=== PATIENT | female | born 1980 | race Caucasian/White ===

== ENCOUNTER 2017-03-24 11:49 | Emergency (ER) | payer BC ==
--- NOTE | 2017-03-24 12:44 | PD ---
HPI Chief Complaint ?LOF Date Seen: Mar 24, 2017 Time Seen: 12:37 Travel History International Travel<30 Days: No Contact w/Intl Traveler<30Days: No Known Affected Area: No History of Present Illness HPI Pt is a 37y/o @ 37.5wks. She has PNC with Dr. Marshall. She presents today for evaluation of possible LOF. She states that she "waited too long" with G1 ROM and baby had to stay in the NICU. She reports, however, that she thought she broke her water on Friday and she had to change her pants twice. On Friday it was less but today more. No VB. +FM. Occasional ctx, Weeks Gestation: 37 Para: 1 : 2 History Past Medical History Medical History: Denies Significant Hx Obstetric History Obstetric History 1. @ term 2. current Past Surgical History Narrative Surgical breast augmentation Family History Family History: Negative Social History Alcohol Use: No Tobacco Use: No Substance Abuse: No Allergies-Medications (Allergen,Severity, Reaction): Coded Allergies: No Known Allergies (Verified Allergy, Severe, 11/29/04) Review of Systems Except as stated in HPI: all other systems reviewed are Neg Physical Exam Narrative General: well developed, well nourished, no acute distress HEENT: normocephalic atraumatic, extraocular movements intact, neck supple Abdomen: soft, gravid, nontender, nondistended Uterus: fundus term Extremities: full range of motion Skin: normal coloration, no rashes Neurologic: cranial nerves 2-12 grossly intact, normal muscle tone, normal gait Psychiatric: normal mood and affect, appropriate FHTs: 135, +accels, no decels, moderate variability, reactive [place]: quiet Cvx: deferred Data Data Vital Signs Reviewed: Yes Orders Orders Vital Signs (Adult) .ON ADMISSION (03/24/17 12:34) ^ Labor Status (03/24/17 12:34) ^ Non Stress Test (03/24/17 12:34) Pamg-1 Test .ONCE (03/24/17 12:34) MDM Plan 37y/o @ 37.5wks with ?LOF. -- amnisure neg (pt counseled not to wait 2.5days to come for evaluation if suspected ROM) -- NST cat 1 -- toco quiet Dispo: stable for d/c home; has PNC appt on Friday Diagnosis Diagnosis: Primary Impression: 37 weeks gestation of Additional Impressions: No leakage of amniotic fluid into vagina AMA (advanced maternal age) multigravida 35+ Nancy Lugo MD Mar 24, 2017 12:44
== END 2017-03-24 12:50 | disposition home or self-care (01) ==
LOC: HOBED 11:49
DX: Z03.71 Encounter for suspected problem with amniotic cavity and membrane ruled out (principal); O09.523 Supervision of elderly multigravida, third trimester; Z3A.37 37 weeks gestation of pregnancy
CPT/HCPCS: 59025; 84112

== ENCOUNTER 2017-03-27 14:28 | Inpatient (IN) | payer BC ==
[2017-03-27] VITALS (100 sets, daily range): BP systolic 118–157; BP diastolic 75–96; PULSE 69–132; RESP 18; TEMP 98–99.1; O2SAT 95–99
[~2017-03-27] VITALS: Ht 162.6 cm; Wt 83.0 kg
[2017-03-27] MEDS ORDERED: LACTATED RINGER'S 1000 ML INJ 1,000 ML IV PRN (15:16)
[2017-03-27] MEDS ORDERED: LACTATED RINGER'S 1000 ML INJ 1,000 ML IV SCH (15:16)
--- NOTE | 2017-03-27 15:23 | HHI.HP ---
HPI Chief Complaint Sallie cortez Date Seen: Mar 27, 2017 Time Seen: 15:15 Travel History International Travel<30 Days: No Contact w/Intl Traveler<30Days: No Known Affected Area: No History of Present Illness HPI Patient is 37-year-old white female at [address] Marshall for care at the [facility] and presents with spontaneous ruptured membranes. She is having contractions but is relatively comfortable. No bleeding noted. heart rate tracing is reactive and she is zia every 5-6 minutes mildly. The amnio sure is positive and the patient describes continued leakage per vagina Weeks Gestation: 38 Para: 1 : 2 History Obstetric History Obstetric History One vaginal delivery Past Surgical History Narrative Surgical Breast augmentation Social History Alcohol Use: No Tobacco Use: No Substance Abuse: No Allergies-Medications (Allergen,Severity, Reaction): Coded Allergies: No Known Allergies (Verified Allergy, Severe, 11/29/04) Review of Systems General / Constitutional: No: Fever, Weight Gain, Chills, Other Eyes: No: Diploplia, Blurred Vision, Visual changes, Pain, Photophobia HENT: No: Headaches, Vertigo, Lightheadedness Cardiovascular: No: Irregular Rhythm, Chest Pain or Discomfort, Palpitations, Tachycardia, Syncope, Varicosities, Edema, Cyanosis Respiratory: No: Cough, Short of Breath, Other Gastrointestinal: No: Nausea, Vomiting, Diarrhea Genitourinary: No: Decreased Urinary Output, Oliguria Musculoskeletal: No: Limited ROM, Weakness, Cramping, Edema, Pain Skin: No Rash, No Itching, No Dryness, No Lumps, No Change in Pigmentation, No Change in Nails, No Alopecia, No Lesions Neurologic: No: Weakness, Dizziness, Syncope, Focal Abnormalities, Coordination Problem, Headache, Slurred Speech, Seizures Psychiatric: No: Depression, Suicidal Ideations, Homicidal Ideation Endocrine: No: Heat Intolerance, Cold Intolerance, Polydipsia, Polyuria, Other Physical Exam Narrative GENERAL: Well-nourished, well-developed patient. SKIN: Warm and dry. HEAD: Normocephalic and atraumatic. EYES: No scleral icterus. No injection or drainage. ENT: No nasal drainage noted. Mucous membranes pink. Airway patent. NECK: Supple, trachea midline. No JVD. CARDIOVASCULAR: Regular rate and rhythm without murmurs, gallops, or rubs. RESPIRATORY: Breath sounds equal bilaterally. No accessory muscle use. BREASTS: Bilateral exam showed no masses , no retractions, no nipple discharge. ABDOMEN/GI: Abdomen soft, non-tender, bowel sounds present, no rebound, no guarding Gravid to [-38] weeks size Fundal Height: [38-] GENITOURINARY: External Genitalia: intact and normal in appearance BUS glands: [-] Cervix: [-] Dilatation: [3-] Effacement: [-70] Station: [-2] Presentation: [-] Membranes: ruptured] positive amnio sure Uterine Contractions: [-irreg] FHT's: Category: [1-] Baseline: [133-] Reactive: [yes-] Variability: [mod-] Decels: [-none] EXTREMITIES: No cyanosis or edema. BACK: Nontender without obvious deformity. No CVA tenderness. NEUROLOGICAL: Awake and alert. Motor and sensory grossly within normal limits. Five out of 5 muscle strength in all muscle groups. Normal speech. Caprini VTE Risk Assessment Caprini VTE Risk Assessment: No/Low Risk (score <= 1) Caprini Risk Assessment Model Point Value = 1 Point Value = 2 Point Value = 3 Point Value = 5 Age 41-60 Minor surgery BMI > 25 kg/m2 Swollen legs Varicose veins or History of unexplained or recurrent spontaneous Oral contraceptives or hormone replacement Sepsis (< 1 month) Serious lung disease, including pneumonia (< 1 month) Abnormal pulmonary function Acute myocardial infarction Congestive heart failure (< 1 month) History of inflammatory bowel disease Medical patient at bed rest Age 61-74 Arthroscopic surgery Major open surgery (> 45 min) Laparoscopic surgery (> 45 min) Malignancy Confined to bed (> 72 hours) Immobilizing plaster cast Central venous access Age >= 75 History of VTE Family history of VTE Factor V Leiden Prothrombin [id number] Lupus anticoagulant Anticardiolipin antibodies Elevated serum homocysteine Heparin-induced thrombocytopenia Other congenital or acquired thrombophilia Stroke (< 1 month) Elective arthroplasty Hip, pelvis, or leg fracture Acute spinal cord injury (< 1 month) Prophylaxis Regimen Total Risk Factor Score Risk Level Prophylaxis Regimen 0-1 Low Early ambulation 2 Moderate Order ONE of the following: *Sequential Compression Device (SCD) *Heparin 5000 units SQ BID 3-4 Higher Order ONE of the following medications: *Heparin 5000 units SQ TID *Enoxaparin/Lovenox 40 mg SQ daily (WT < 150 kg, CrCl > 30 mL/min) *Enoxaparin/Lovenox 30 mg SQ daily (WT < 150 kg, CrCl > 10-29 mL/min) *Enoxaparin/Lovenox 30 mg SQ BID (WT < 150 kg, CrCl > 30 mL/min) AND/OR *Sequential Compression Device (SCD) 5 or more Highest Order ONE of the following medications: *Heparin 5000 units SQ TID (Preferred with Epidurals) *Enoxaparin/Lovenox 40 mg SQ daily (WT < 150 kg, CrCl > 30 mL/min) *Enoxaparin/Lovenox 30 mg SQ daily (WT < 150 kg, CrCl > 10-29 mL/min) *Enoxaparin/Lovenox 30 mg SQ BID (WT < 150 kg, CrCl > 30 mL/min) AND *Sequential Compression Device (SCD) Data Data Orders Orders Admit To Inpatient (03/27/17 ) Vital Signs (Adult) .Per protocol (03/27/17 15:16) Heart (03/27/17 15:16) Amnioinfusion (03/27/17 15:16) Urinary Catheter Management .ONCE (03/27/17 15:16) Diet Liquid (03/27/17 Dinner) Lactated Ringer's 1000 Ml Inj (Lr 1000 M (03/27/17 15:16) Lactated Ringer's 1000 Ml Inj (Lr 1000 M (03/27/17 15:16) Sodium Chlorid 0.9% 500 Ml Inj (Ns 500 M (03/27/17 15:30) Sodium Chlor 0.9% 1000 Ml Inj (Ns 1000 M (03/27/17 15:36) Lidocaine 1% Inj (50 Ml) (Xylocaine 1% I (03/27/17 15:30) Citric Acid-Sodium Citrate Liq (Bicitra (03/27/17 15:30) Fentanyl Inj (Fentanyl Inj) (03/27/17 15:30) Fentanyl Inj (Fentanyl Inj) (03/27/17 15:30) Complete Blood Count With Diff (03/27/17 15:16) Hold Clot (03/27/17 15:16) Abo/Rh Blood Type (03/27/17 15:16) Urinalysis - C+S If Indicated (03/27/17 15:16) Drug Screen, Random Urine (03/27/17 15:16) Resp Oxygen Non Rebreathe Mask (03/27/17 ) ^ Epidural / Intrathecal Infus (03/27/17 15:16) Oxytocin 30 Units-500ml Premix (Pitocin (03/27/17 15:30) Lidocaine 1% Inj (50 Ml) (Xylocaine 1% I (03/27/17 15:30) Light Mineral Oil (Muri-Lube Oil) (03/27/17 15:30) Group B Strep: Negative Labs Amnio sure positive Assessment/Plan Assessment and Plan Patient is 37-year-old white female at 38 weeks presents with spontaneous ruptured membranes at term. No bleeding. The heart rate tracing is reactive and she is zia every 5-6 minutes mildly. Amnio sure is positive Plan--admit for SROM at term, augment labor appropriately and anticipate vaginal delivery Jose Perez II, MD Mar 27, 2017 15:23
[2017-03-27] MEDS ORDERED: CITRIC ACID-SODIUM CITRATE LIQ 30 ML UDC PO SCH (15:30)
[2017-03-27] MEDS ORDERED: SODIUM CHLORID 0.9% 500 ML INJ 500 ML IV PRN (15:30)
[2017-03-27] MEDS ORDERED: LIDOCAINE HCL 1% 50 ML VIAL INFIL PRN (15:30)
[2017-03-27] MEDS ORDERED: OXYTOCIN 30 UNITS-500ML PREMIX 500 ML IV ONE (15:30)
[2017-03-27] MEDS ORDERED: LIDOCAINE HCL 1% 50 ML VIAL I-DERMAL PRN (15:30)
[2017-03-27] MEDS ORDERED: MINERAL OIL 10 ML VIAL TOPICAL PRN (15:30)
[2017-03-27] MEDS ORDERED: SODIUM CHLOR 0.9% 1000 ML INJ 1,000 ML IV PRN (15:36)
[2017-03-27] MEDS ORDERED: MEASLES, MUMPS, RUBELLA VACCINE 0.5 ML VIAL SQ ONE (16:00)
[2017-03-27] MEDS ORDERED: DIPHTH/TETANUS/ACEL PERTUSSIS (BOOSTER) 0.5 ML VIAL/PFS IM ONE (16:00)
[2017-03-27 16:49] LABS: BASOPHIL % 0.6 % (0.0-2.0); EOSINOPHIL # 0.1 TH/MM3 (0-0.4); EOSINOPHIL % 0.8 % (0.0-4.0); HEMATOCRIT 34.8 % (35.0-46.0); HEMO FLAGS DIFF FINAL; LYMPH % 18.2 % (9.0-44.0); LYMPHOCYTE # 1.5 TH/MM3 (1.0-4.8); MEAN CELL VOLUME 85.6 FL (80.0-100.0); MEAN CORPUSCULAR HEMOGLOBIN 29.4 PG (27.0-34.0); MEAN CORPUSCULAR HGB CONC 34.4 % (32.0-36.0); MONO % 6.4 % (0.0-8.0); PLATELET COUNT 210 TH/MM3 (150-450); RED BLOOD COUNT 4.07 MIL/MM3 (4.00-5.30); RED CELL DISTRIBUTION WIDTH 12.9 % (11.6-17.2); WHITE BLOOD COUNT 8.1 TH/MM3 (4.0-11.0)
[2017-03-27] MEDS ORDERED: OXYTOCIN 30 UNITS/NS 500ML PREMIX IV SCH (17:00)
[2017-03-27 17:59] LABS: BLOOD, URINE NEG (NEG); COMMENT (UR) CULT NOT INDICATED; CULTURE IF INDICATED CULT NOT INDICATED; GLUCOSE,URINE NEG (NEG); KETONE, URINE NEG (NEG); MUCUS URINE MOD /lpf (OCC); NITRITE,URINE NEG (NEG); SQUAMOUS EPITHELIAL CELL URINE 1 /hpf (0-5); URINE COLOR YELLOW (YELLW/STRAW)
[2017-03-27] MEDS ORDERED: fentaNYL 2MCG-BUPIV 0.125% INJ 100 ML ONE (19:24)
[2017-03-27] MEDS ORDERED: ePHEDrine/NS 25 MG/5 ML SYRINGE ONE (19:25)
[2017-03-27] MEDS ORDERED: SODIUM CHLORIDE 0.9% FLUSH 10 ML FLUSH IV FLUSH PRN (21:30)
[2017-03-27] MEDS ORDERED: OXYTOCIN 30 UNITS-500ML PREMIX 500 ML IV SCH (21:30)
[2017-03-27] MEDS ORDERED: BENZOCAINE 20% TOPICAL SPRAY 60 ML CAN TOPICAL PRN (21:30)
[2017-03-27] MEDS ORDERED: WITCH HAZEL 50%/GLYCERIN 12.5% 40 PAD JAR TOPICAL PRN (21:30)
[2017-03-27] MEDS ORDERED: ALUMINUM/MAGNESIUM/SIMETH 30 ML CUP PO PRN (21:30)
[2017-03-27] MEDS ORDERED: ZOLPIDEM TARTRATE 5 MG TAB PO PRN (21:30)
[2017-03-27] MEDS ORDERED: DOCUSATE SODIUM 50 MG/SENNA 8.6 MG TAB PO PRN (21:30)
[2017-03-27] MEDS ORDERED: ONDANSETRON ODT 4 MG TAB PO PRN (21:30)
[2017-03-27] MEDS ORDERED: ACETAMINOPHEN 325 MG TAB PO PRN (21:30)
--- NOTE | 2017-03-27 21:30 | PD.OB.DELI ---
Weeks gestation: 38 Anesthesia: Epidural Episiotomy: None Vaginal Delivery: Normal Presentation: Occiput anterior Nuchal Cord: x1 Delayed cord clamping (45 sec): Yes : Female Delivery date: Mar 27, 2017 Delivery time: 21:30 One Minute : 8 Five Minute : 9 Weight: 6 Placenta: Spontaneous delivery Laceration: No lacerations Estimated blood loss: 200 Cindi Calhoun MD Mar 27, 2017 21:30
--- NOTE | 2017-03-27 22:00 | HHI.DCPOC ---
Discharge Care Plan Report Symptoms to Your Doctor -Temperature above 100.5 degrees -Redness, of incision or excessive or foul smelling drainage -Unusual pain or calf pain -Increased vaginal bleeding -Painful or difficulty urinating -Feelings of extreme sadness or anxiety after 2 weeks Goals to Promote Your Health * To prevent worsening of your condition and complications * To maintain your health at the optimal level Directions to Meet Your Goals Take your medications as prescribed Follow your dietary instruction Follow activity as directed Ensure plenty of rest for recovery Drink fluids for hydration Keep your appointments as scheduled Take your immunizations and boosters as scheduled If your symptoms worsen call your PCP, if no PCP go to Urgent Care Center or Emergency Room Smoking is Dangerous to Your Health. Avoid second hand smoke Call the 24-hour crisis hotline for domestic abuse at Cindi Calhoun MD Mar 27, 2017 21:59
[2017-03-27] MEDS ORDERED: ePHEDrine/NS 25 MG/5 ML SYRINGE IV PUSH PRN (22:15)
[2017-03-27] MEDS ORDERED: NO SYSTEM NARCOTICS PRN (23:00)
[2017-03-27] MEDS ORDERED: fentaNYL 2MCG-BUPIV 0.125% 100 ML EPIDURAL SCH (23:00)
[2017-03-27] MEDS ORDERED: DO NOT ADMINISTER ANTICOAGULANTS PRN (23:00)
[2017-03-28] VITALS: BP 147/87; PULSE 66; RESP 18; TEMP 98.8; O2SAT 97
[2017-03-28 08:00] VITALS: BP 139/90; PULSE 84; RESP 16; TEMP 97.8; O2SAT 98
--- NOTE | 2017-03-28 08:02 | HHI.OB ---
Subjective Post Day: 1 Remarks doing well despite epidural window and severe in second stage nursing desires full days Objective Vitals/I&O Vital Signs Date Time Temp Pulse Resp B/P (MAP) Pulse Ox O2 Delivery O2 Flow Rate FiO2 03/28/17 00:00 98.8 66 18 147/87 (107) 97 03/27/17 23:40 18 03/27/17 23:30 72 135/89 (104) 03/27/17 23:15 72 130/86 (101) 03/27/17 23:01 73 125/77 (93) 03/27/17 22:53 18 03/27/17 22:45 73 18 130/87 (101) 03/27/17 22:30 73 132/83 (99) 03/27/17 22:26 18 03/27/17 22:25 79 134/87 (103) 03/27/17 22:15 18 03/27/17 22:15 81 03/27/17 22:07 98.8 03/27/17 22:00 18 03/27/17 21:37 18 03/27/17 21:30 101 118/94 (102) 03/27/17 21:30 18 03/27/17 21:20 127 99 03/27/17 21:20 130 03/27/17 21:20 132 03/27/17 21:15 101 03/27/17 21:15 99 125/85 (98) 96 03/27/17 21:15 102 03/27/17 21:14 105 131/92 (105) 03/27/17 21:11 105 136/77 (96) 03/27/17 21:10 104 95 03/27/17 21:10 101 03/27/17 21:09 103 137/87 (104) 03/27/17 21:06 120 03/27/17 21:05 105 95 03/27/17 21:05 103 03/27/17 21:00 100 03/27/17 21:00 104 138/85 (102) 98 03/27/17 21:00 103 03/27/17 20:55 97 99 03/27/17 20:55 98 03/27/17 20:50 92 03/27/17 20:50 89 98 03/27/17 20:45 86 03/27/17 20:45 98 03/27/17 20:45 90 18 134/82 (99) 03/27/17 20:45 86 03/27/17 20:40 93 03/27/17 20:40 93 03/27/17 20:35 90 03/27/17 20:35 90 03/27/17 20:30 82 134/84 (101) 03/27/17 20:30 86 03/27/17 20:30 79 03/27/17 20:20 80 03/27/17 20:20 81 03/27/17 20:15 86 03/27/17 20:15 87 03/27/17 20:15 87 142/96 (111) 03/27/17 20:10 79 03/27/17 20:10 79 03/27/17 20:05 77 03/27/17 20:05 78 03/27/17 20:00 69 03/27/17 20:00 75 03/27/17 20:00 80 126/81 (96) 03/27/17 19:55 77 03/27/17 19:55 76 03/27/17 19:54 85 137/83 (101) 03/27/17 19:53 98.0 18 03/27/17 19:50 75 03/27/17 19:50 72 03/27/17 19:45 78 03/27/17 19:45 72 129/75 (93) 03/27/17 19:45 72 03/27/17 19:40 75 03/27/17 19:40 75 03/27/17 19:40 77 126/80 (95) 03/27/17 19:38 18 03/27/17 19:37 132/86 (101) 03/27/17 19:37 74 03/27/17 19:36 79 03/27/17 19:35 81 03/27/17 19:35 95 03/27/17 19:34 82 157/92 (113) 03/27/17 19:32 84 03/27/17 19:32 140/87 (104) 03/27/17 19:30 86 03/27/17 19:30 76 03/27/17 19:30 86 03/27/17 19:27 110 03/27/17 19:25 85 03/27/17 19:20 91 03/27/17 19:15 88 12/21/17 18:55 84 03/27/17 18:50 85 03/27/17 18:45 77 03/27/17 18:40 84 03/27/17 18:35 78 131/92 (105) 03/27/17 18:35 81 03/27/17 18:30 85 03/27/17 18:25 85 03/27/17 18:20 82 03/27/17 18:17 91 03/27/17 18:17 121/82 (95) 03/27/17 18:15 90 03/27/17 18:10 90 03/27/17 18:05 97 03/27/17 18:00 99.1 03/27/17 18:00 86 03/27/17 17:55 97 03/27/17 17:54 91 124/79 (94) 03/27/17 17:53 18 03/27/17 17:50 85 03/27/17 17:45 95 03/27/17 17:22 89 126/84 (98) 03/27/17 17:20 85 03/27/17 17:15 93 03/27/17 17:10 91 03/27/17 17:05 92 03/27/17 17:00 90 03/27/17 16:55 88 03/27/17 16:53 88 130/79 (96) 03/27/17 16:52 18 03/27/17 16:50 95 03/27/17 16:45 87 03/27/17 16:40 91 03/27/17 16:35 92 03/27/17 16:30 97 03/27/17 16:25 93 03/27/17 16:20 92 03/27/17 16:15 92 03/27/17 16:10 101 03/27/17 16:00 101 03/27/17 15:59 98.0 03/27/17 15:55 92 03/27/17 15:53 102 18 134/87 (103) 03/27/17 15:50 99 03/27/17 15:45 102 03/27/17 15:40 97 17 15:35 102 03/27/17 15:30 112 03/27/17 15:15 104 03/27/17 15:10 105 03/27/17 15:05 104 03/27/17 15:00 96 Objective Remarks GENERAL: Well-nourished, well-developed patient. CARDIOVASCULAR: Regular rate and rhythm without murmurs, gallops, or rubs. RESPIRATORY: Breath sounds equal bilaterally. No accessory muscle use. ABDOMEN/GI: Abdomen soft, non-tender. Fundus: Firm, non-tender at umbilicus. GENITOURINARY: Light to moderate bleeding. EXTREMITIES: No cyanosis or edema, non-tender, without signs of DVT. Medications and IVs Current Medications Medications (Trade) Dose Ordered Sig/Ana Paula Route Start Time Stop Time Status Last Admin Lactated Ringer's 1,000 ml @ 125 mls/hr Q8H IV 03/27/17 15:16 03/27/17 17:03 Lactated Ringer's 1,000 ml @ 3,000 mls/hr Q20M PRN IV 03/27/17 15:16 Sodium Chloride 500 ml @ 1,000 mls/hr ONCE PRN IV 03/27/17 15:30 03/28/17 15:29 Sodium Chloride 1,000 ml @ 100 mls/hr Q10H PRN IV 03/27/17 15:36 (Xylocaine 1% Inj (50 ml)) 0.1 ml UNSCH X1 PRN I-DERMAL 03/27/17 15:30 03/30/17 15:29 (Bicitra Liq) 30 ml KNUCKLER PO 03/27/17 15:30 03/31/17 15:29 (fentaNYL INJ) 50 mcg Q1H PRN IV PUSH 03/27/17 15:30 (fentaNYL INJ) 100 mcg Q1H PRN IV PUSH 03/27/17 15:30 (Xylocaine 1% Inj (50 ml)) 10 ml UNSCH X1 PRN INFIL 03/27/17 15:30 03/29/17 15:29 (Muri-Lube Oil) 10 ml UNSCH PRN TOPICAL 03/27/17 15:30 (NS Flush) 2 ml BID IV FLUSH 03/28/17 09:00 (NS Flush) 2 ml UNSCH PRN IV FLUSH 03/27/17 21:30 (Tylenol) 650 mg Q4H PRN PO 03/27/17 21:30 (Motrin) 800 mg Q8H PRN PO 03/27/17 21:30 (Americaine 20% Top Spr) 1 spray Q4H PRN TOPICAL 03/27/17 21:30 (Tucks Pads) 1 applic QID PRN TOPICAL 03/27/17 21:30 (Mahnaz-Colace) 2 tab Q12H PRN PO 03/27/17 21:30 (Ambien) 5 mg HS PRN PO 03/27/17 21:30 (Mag-Al Plus Susp Liq) 15 ml Q8H PRN PO 03/27/17 21:30 (Zofran Odt) 4 mg Q6H PRN PO 03/27/17 21:30 Miscellaneous Information No systemic narcotics to be given except... UNSCH PRN .XX 03/27/17 23:00 03/28/17 22:59 Miscellaneous Information DO NOT ADMINISTER ANY ANTICOAGUL... UNSCH PRN .XX 03/27/17 23:00 03/28/17 22:59 Fentanyl/ Bupivacaine HCl 100 ml @ 0 mls/hr TITRATE EPIDURAL 03/27/17 23:00 (ePHEDrine/NS 25 MG/5 ML SYR) 10 mg UNSCH PRN IV PUSH 03/27/17 22:15 03/28/17 22:14 Assessment/Plan Assessment and Plan Patient is 37-year-old white female at 38 weeks presents with spontaneous ruptured membranes at term. No bleeding. The heart rate tracing is reactive and she is zia every 5-6 minutes mildly. Amnio sure is positive Plan--admit for SROM at term, augment labor appropriately and anticipate vaginal delivery 03/28/17 doing well home tomorrow Cindi Calhoun MD Mar 28, 2017 08:02
[2017-03-28 09:00] VITALS: BP 123/85; PULSE 59; RESP 17; TEMP 98.2
[2017-03-28] MEDS ORDERED: SODIUM CHLORIDE 0.9% FLUSH 10 ML FLUSH IV FLUSH SCH (09:00)
[2017-03-28 20:00] VITALS: BP 129/76; PULSE 75; RESP 18; TEMP 98.1; O2SAT 99
[2017-03-28] MEDS: IBUPROFEN 800 MG TAB PO PRN (22:11)
[2017-03-29] MEDS: IBUPROFEN 800 MG TAB PO PRN (06:14)
[2017-03-29 08:00] VITALS: BP 129/83; PULSE 63; RESP 18; TEMP 97.8; O2SAT 99
== END 2017-03-29 11:37 | disposition home or self-care (01) | DRG 775 ==
LOC: HOBED 14:28 → H2EA 15:30 → H1EA 23:46
PROVIDERS: ADMIT Obstetrics & Gynecology; ATTEND Obstetrics & Gynecology
PROC: 10E0XZZ Delivery of Products of Conception, External Approach (ICD-10-PCS; principal; 2017-03-27)
PROC: 00HU33Z Insertion of Infusion Device into Spinal Canal, Percutaneous Approach (ICD-10-PCS; 2017-03-27)
PROC: 3E0R3BZ Introduction of Anesthetic Agent into Spinal Canal, Percutaneous Approach (ICD-10-PCS; 2017-03-27)
DX: O69.81X0 Labor and delivery complicated by cord around neck, without compression, not applicable or unspecified (principal); Z37.0 Single live birth; Z3A.38 38 weeks gestation of pregnancy; Z03.71 Encounter for suspected problem with amniotic cavity and membrane ruled out
CPT/HCPCS: 59025; 80307; 81001; 84112; 85025; 86900; 86901; J2590; J7120